=== PATIENT | female | born 1955 | race Two or more races ===

== ENCOUNTER 2016-10-27 13:19 | Emergency (ER) | payer MEDICAID, OTHER, SELFPAY ==
[~2016-10-27] VITALS: Ht 162.6 cm; Wt 116.2 kg
[2016-10-27 14:23] LABS: PATH.CAST-FLAG NOT PRESENT; SPERM-FLAG NOT PRESENT; SRC-FLAG NOT PRESENT; XTAL-FLAG NOT PRESENT; YLC-FLAG NOT PRESENT
[2016-10-27] MEDS ORDERED: SODIUM CHLORIDE FLUSH 10ML SYR IVF ONE (14:30)
[2016-10-27] MEDS ORDERED: ALUMINUM/MAG/SIMETHICONE 30 ML UDC PO ONE (14:30)
[2016-10-27] MEDS ORDERED: MAALOX/HYOSCYAMINE/LIDOCAINE 45 ML BOTTLE ONE (14:54)
[2016-10-27 15:00] LABS: BLOOD UREA NITROGEN 16 mg/dL (7-18)
[2016-10-27 15:06] LABS: ASPARTATE AMINO TRANSFERASE 18 U/L (15-37)
[2016-10-27 17:03] VITALS: BP 123/81
[2016-10-27] MEDS ORDERED: OMNIPAQUE 350 MG/ML, 100ML BOTTLE ONE (18:06)
== END 2016-10-27 19:07 | disposition home or self-care (01) ==
LOC: ED 15:25
DX: K21.9 Gastro-esophageal reflux disease without esophagitis (principal)
CPT/HCPCS: 36415; 71020; 74177; 80053; 81001; 83880; 84484; 85025; 85610; 85730; 87086; 93005; 99285; Q9967

== ENCOUNTER 2017-09-24 11:27 | Observation (INO) | payer MEDICARE, MEDICAID ==
[~2017-09-24] VITALS: Ht 162.6 cm; Wt 122.1 kg
[2017-09-24] MEDS ORDERED: KETOROLAC 30 MG/1 ML IM ONE (12:00)
[2017-09-24] MEDS ORDERED: OXYcodone/APAP 5/325MG TABLET PO ONE (12:00)
[2017-09-24] MEDS ORDERED: DIAZEPAM 5 MG TABLET PO ONE (12:00)
[2017-09-24] MEDS ORDERED: DIAZEPAM 5 MG TABLET ONE (12:01)
[2017-09-24] MEDS ORDERED: OXYcodone/APAP 5/325MG TABLET ONE (12:02)
[2017-09-24] MEDS ORDERED: KETOROLAC 30 MG/1 ML ONE (12:02)
[2017-09-24 12:40] LABS: BASOPHILS % (AUTO) 0 % (0-1); EOSINOPHILS # (AUTO) 0.29 x10^3/uL (0-0.4); EOSINOPHILS % (AUTO) 3 % (1-7); LYMPHOCYTES # (AUTO) 2.19 x10^3/uL (1-3.4); LYMPHOCYTES % (AUTO) 22 % (22-44); MD NO; MEAN CORPUSCULAR HEMOGLOBIN 25.9 pg (27.0-34.8); MEAN CORPUSCULAR HGB CONC 32.6 g/dL (32.4-35.8); MEAN CORPUSCULAR VOLUME 79.4 fL (80-100); MEAN PLATELET VOLUME 8.7 fL (7.4-10.4); MONOCYTES # (AUTO) 0.64 x10^3/uL (0.2-0.8); MONOCYTES % (AUTO) 7 % (2-9); NEUTROPHILS # (AUTO) 6.66 x10^3/uL (1.8-6.8); NEUTROPHILS % (AUTO) 68 % (42-75); PLATELET COUNT 300 x10^3/uL (130-400); RED BLOOD COUNT 4.96 x10^6/uL (3.82-5.3); RED CELL DISTRIBUTION WIDTH 16.6 % (9.6-15.2)
[2017-09-24 12:51] LABS: ALBUMIN 3.3 g/dL (3.4-5.0); ANION GAP 6 mmol/L (5-15); CHLORIDE 110 mmol/L (98-107); CREATININE 0.89 mg/dL (0.55-1.02)
[2017-09-24 12:55] LABS: TROPONIN I < 0.015 ng/mL (0.000-0.045)
[2017-09-24 13:09] LABS: MICROSCOPIC AUTO
[2017-09-24 13:14] LABS: CULTURE INDICATED? NO
[2017-09-24 15:52] LABS: INTERNATIONAL NORMALIZED RATIO 1.01 (0.93-1.1); PROTHROMBIN TIME 10.4 Seconds (9.6-11.5)
[2017-09-24 16:15] VITALS: BP 136/82
[2017-09-24] MEDS: HEPARIN 5,000 UNITS/ML, 1ML SQ SCH (16:50)
[2017-09-24] MEDS: SODIUM CHLORIDE 0.9% 1,000 ML IV SCH (16:50)
[2017-09-24] MEDS: ACETAMINOPHEN 325 MG TABLET PO SCH ×2 (16:50→22:23)
[2017-09-24 17:42] VITALS: BP 136/82
[2017-09-24] MEDS ORDERED: LEVO125T5 PO (17:54)
[2017-09-24] MEDS ORDERED: METO50TA82 PO (17:54)
[2017-09-24] MEDS ORDERED: APIX5TAB PO (17:54)
[2017-09-24] MEDS ORDERED: LORA1TAB PO (17:54)
[2017-09-24] MEDS ORDERED: FURO20TA3 PO (17:54)
[2017-09-24] MEDS ORDERED: OMEP20CA14 PO (17:54)
[2017-09-24] MEDS ORDERED: LOSA50TA6 PO (17:54)
[2017-09-24 19:09] VITALS: BP 116/70
[2017-09-25 03:04] VITALS: BP 121/77
[2017-09-25] MEDS: HEPARIN 5,000 UNITS/ML, 1ML SQ SCH ×3 (04:36→19:16)
[2017-09-25] MEDS: ACETAMINOPHEN 325 MG TABLET PO SCH ×4 (04:36→19:16)
[2017-09-25 04:39] LABS: BASOPHILS # (AUTO) 0.03 x10^3/uL (0-0.1); BASOPHILS % (AUTO) 0 % (0-1); EOSINOPHILS # (AUTO) 0.33 x10^3/uL (0-0.4); EOSINOPHILS % (AUTO) 4 % (1-7); LYMPHOCYTES # (AUTO) 2.27 x10^3/uL (1-3.4); LYMPHOCYTES % (AUTO) 29 % (22-44); MD NO; MEAN CORPUSCULAR HEMOGLOBIN 25.7 pg (27.0-34.8); MEAN CORPUSCULAR HGB CONC 32.2 g/dL (32.4-35.8); MEAN CORPUSCULAR VOLUME 79.7 fL (80-100); MEAN PLATELET VOLUME 8.6 fL (7.4-10.4); MONOCYTES # (AUTO) 0.64 x10^3/uL (0.2-0.8); MONOCYTES % (AUTO) 8 % (2-9); NEUTROPHILS # (AUTO) 4.47 x10^3/uL (1.8-6.8); NEUTROPHILS % (AUTO) 58 % (42-75); PLATELET COUNT 261 x10^3/uL (130-400); RED CELL DISTRIBUTION WIDTH 16.8 % (9.6-15.2)
[2017-09-25 04:51] LABS: ANION GAP 4 mmol/L (5-15); CALCIUM 8.1 mg/dL (8.5-10.1); CHLORIDE 106 mmol/L (98-107); CREATININE 0.83 mg/dL (0.55-1.02)
[2017-09-25 07:03] VITALS: BP 154/86
[2017-09-25] MEDS: ONDANSETRON 2MG/ML, 2ML IVPush PRN (07:53)
[2017-09-25] MEDS: LORazepam 1MG TABLET PO SCH ×3 (08:25→19:16)
[2017-09-25] MEDS: IBUPROFEN 200 MG TABLET PO PRN ×3 (08:25→19:15)
[2017-09-25 13:08] VITALS: BP 154/103
[2017-09-25] MEDS: SODIUM CHLORIDE 0.9% 1,000 ML IV SCH (13:13)
[2017-09-25] MEDS ORDERED: FENTANYL PF 100 MCG/2ML ONE (14:09)
[2017-09-25] MEDS ORDERED: MIDAZOLAM 1 MG/ML, 5ML ONE (14:09)
[2017-09-25] MEDS ORDERED: SUMATRIPTAN 50 MG TABLET PO PRN (19:00)
[2017-09-25 19:19] VITALS: BP 121/64
[2017-09-26] MEDS: ACETAMINOPHEN 325 MG TABLET PO SCH ×2 (01:18→07:53)
[2017-09-26 02:12] VITALS: BP 114/82
[2017-09-26] MEDS: SODIUM CHLORIDE 0.9% 1,000 ML IV SCH (03:40)
[2017-09-26] MEDS: HEPARIN 5,000 UNITS/ML, 1ML SQ SCH (04:56)
[2017-09-26] MEDS: IBUPROFEN 200 MG TABLET PO PRN (05:00)
[2017-09-26 06:23] LABS: HEMOGLOBIN A1C 7.3 % (4.2-6.3)
[2017-09-26] MEDS: ONDANSETRON 2MG/ML, 2ML IVPush PRN (06:24)
[2017-09-26 06:56] VITALS: BP 126/81
[2017-09-26] MEDS: LORazepam 1MG TABLET PO SCH (07:53)
[2017-09-26] MEDS ORDERED: ACET325T14 PO (09:48)
[2017-09-26] MEDS ORDERED: IBUP-1484 PO (09:48)
== END 2017-09-26 11:40 | disposition home or self-care (01) ==
LOC: ED 13:42 → EDIP 13:43 → INTOOBSV 13:43 → ED 14:19 → 3NE 16:05 → DCLOUNGE 09-26 11:27
PROVIDERS: ADMIT Internal Medicine; ATTEND Internal Medicine
DX: M54.9 Dorsalgia, unspecified (principal); E03.9 Hypothyroidism, unspecified; K21.9 Gastro-esophageal reflux disease without esophagitis; G47.30 Sleep apnea, unspecified; E66.01 Morbid (severe) obesity due to excess calories; I48.91 Unspecified atrial fibrillation; I11.9 Hypertensive heart disease without heart failure; I51.7 Cardiomegaly; Z79.01 Long term (current) use of anticoagulants; Z87.891 Personal history of nicotine dependence
CPT/HCPCS: 36415; 71046; 72050; 72072; 72110; 72131; 72141; 72146; 80048; 81001; 82040; 83036; 83880; 84484; 85025; 85610; 93005; 96361; 96372; 96374; 96376; 97163; 99156; 99157; 99285; G0378; J1644; J1885; J2250; J2405; J3010; J7030

== ENCOUNTER → 2020-09-02 | Outpatient (CLI) | payer MEDICARE, MEDICAID ==
[~2020-09-02] MED LIST: ACET325T14 PO; APIX5TAB PO; FURO20TA3 PO; GLIM4TAB8 PO; IBUP-1902 PO; LEVO125T5 PO; LEVO137T3 PO; LORA1TAB PO; LOSA50TA14 PO; METO50TA82 PO; OMEP20CA20 PO; PIOG30TA68 PO
[2020-09-02 15:38] LABS: ALANINE AMINOTRANSFERASE 27 U/L (12-78); ALBUMIN 3.6 g/dL (3.4-5.0); ANION GAP 5 mmol/L (5-15); CALCIUM 8.5 mg/dL (8.5-10.1); CHLORIDE 108 mmol/L (98-107)
[2020-09-02 15:40] LABS: ALKALINE PHOSPHATASE 132 U/L (45-117); BILIRUBIN,TOTAL 0.8 mg/dL (0.2-1.0); TOTAL PROTEIN 7.3 g/dL (6.4-8.2)
== END | disposition home or self-care (01) ==
LOC: STAR 13:47
PROVIDERS: ATTEND Internal Medicine Gastroenterology
DX: Z01.818 Encounter for other preprocedural examination (principal); R07.9 Chest pain, unspecified; I48.91 Unspecified atrial fibrillation; Z20.822 Contact with and (suspected) exposure to COVID-19
CPT/HCPCS: 36415; 80053; 93005; U0003; U0005

== ENCOUNTER 2020-09-08 07:12 | Day surgery (SDC) | payer MEDICARE, MEDICAID ==
[~2020-09-08] VITALS: Ht 162.6 cm; Wt 121.8 kg
[2020-09-08 07:37] VITALS: BP 140/82
[2020-09-08] MEDS ORDERED: CHLORHEXIDINE 15 ML UDC ONE (07:46)
[2020-09-08] MEDS ORDERED: CHLORHEXIDINE 15 ML UDC PO ONE (08:00)
[2020-09-08] MEDS ORDERED: LACTATED RINGERS 1,000 ML IV SCH (08:00)
[2020-09-08] MEDS ORDERED: PROPOFOL 10 MG/ML, 20ML ONE (10:14)
[2020-09-08] MEDS ORDERED: ACETAMINOPHEN 650 MG/20.3 ML UDC ONE (10:59)
[2020-09-08] MEDS ORDERED: ONDANSETRON 2MG/ML, 2ML IVPush PRN (11:00)
[2020-09-08] MEDS ORDERED: ALBUTEROL SULFATE 2.5 MG/3 ML NPPB PRN (11:00)
[2020-09-08] MEDS ORDERED: EPHEDRINE 50 MG/ML, 1ML IVPush PRN (11:00)
[2020-09-08] MEDS ORDERED: MEPERIDINE/PF 25MG/0.5ML IVPush PRN (11:00)
[2020-09-08] MEDS ORDERED: MIDAZOLAM 1 MG/ML, 2ML IV PRN (11:00)
[2020-09-08] MEDS ORDERED: hydrALAzine 20 MG/ML, 1ML IV PRN (11:00)
[2020-09-08] MEDS ORDERED: OXYcodone 5 MG/5 ML ORAL.SOL UDC PO PRN (11:00)
[2020-09-08] MEDS ORDERED: HYDROmorphone 1 MG/ML, 1ML INJ IVPush PRN (11:00)
[2020-09-08] MEDS ORDERED: FENTANYL PF 100 MCG/2ML IV PRN (11:00)
[2020-09-08] MEDS ORDERED: PROMETHAZINE 25 MG/ML, 1ML IVPush PRN (11:00)
[2020-09-08] MEDS ORDERED: DIAZEPAM 5 MG/ML, 2ML IVPush PRN (11:00)
[2020-09-08] MEDS ORDERED: ACETAMINOPHEN 325 MG TABLET PO PRN (11:00)
[2020-09-08] MEDS ORDERED: DIPHENHYDRAMINE 50 MG/ML, 1ML IVPush PRN ×2 (11:00)
[2020-09-08] MEDS ORDERED: PROMETHAZINE 12.5 MG SUPP PR PRN (11:00)
[2020-09-08] MEDS ORDERED: LABETALOL 5MG/ML, 20ML IV PRN (11:00)
== END 2020-09-08 12:00 | disposition home or self-care (01) ==
LOC: OUT 07:12
PROVIDERS: ATTEND Internal Medicine Gastroenterology
DX: R13.19 Other dysphagia (principal); K29.50 Unspecified chronic gastritis without bleeding; E11.9 Type 2 diabetes mellitus without complications; G47.33 Obstructive sleep apnea (adult) (pediatric); E03.9 Hypothyroidism, unspecified; J44.9 Chronic obstructive pulmonary disease, unspecified; I10 Essential (primary) hypertension; E66.9 Obesity, unspecified; I48.91 Unspecified atrial fibrillation; Z79.01 Long term (current) use of anticoagulants; Z79.890 Hormone replacement therapy; Z79.899 Other long term (current) drug therapy; Z88.8 Allergy status to other drugs, medicaments and biological substances; Z99.81 Dependence on supplemental oxygen
CPT/HCPCS: 43239; 82962; 88305; 88342; J2704; J7120